=== PATIENT | female | born 1955 ===

== ENCOUNTER 2017-03-19 17:14 | Emergency (ER) | payer BC ==
[2017-03-19 17:26] VITALS: BMI 24.1
[2017-03-19 17:29] VITALS: RESP 16; TEMP 98.8; O2SAT 99
--- NOTE | 2017-03-19 18:24 | ED PDOC ---
Arrival/HPI - General Chief Complaint: Trauma Time Seen by Provider: 03/19/17 18:10 Historian: Patient - History of Present Illness Narrative History of Present Illness (Text): 03/19/17 18:00 This 61 yo female presents to this ED c/o left foot and left lower leg pain x [employer]. Patient stated she step on uneven surface , which caused her to fall. Denies head injury, LOC, dizziness, sob, cp, abdominal pain, back pain, /GI incontinence, saddle anesthesia, neck pain, or syncope. Time/Duration: Prior to Arrival Quality: Aching Context: Home Past Medical History - Provider Review Nursing Documentation Reviewed: Yes - Cardiac Hx Cardiac Disorders: No - Pulmonary Hx Respiratory Disorders: No - Neurological Hx Neurological Disorder: No - HEENT Hx HEENT Disorder: No - Renal Hx Renal Disorder: No - Endocrine/Metabolic Hx Endocrine Disorders: No - Hematological/Oncological Hx Blood Disorders: No - Integumentary Hx Dermatological Disorder: No - Musculoskeletal/Rheumatological Hx Musculoskeletal Disorders: No - Gastrointestinal Hx Gastrointestinal Disorders: No - Genitourinary/Gynecological Hx Genitourinary Disorders: No - Psychiatric Hx Psychophysiologic Disorder: Yes Hx Anxiety: Yes Hx Substance Use: No Family/Social History - Physician Review Nursing Documentation Reviewed: Yes Family/Social History: No Known Family HX Smoking Status: Never Smoked Hx Alcohol Use: No Hx Substance Use: No Allergies/Home Meds Allergies/Adverse Reactions: Allergies No Known Allergies Allergy (Verified 03/19/17 17:25) Home Medications: Home Meds Medication Instructions Recorded Confirmed Alprazolam [Xanax] 1 tab PO PRN PRN 03/19/17 03/19/17 Ergocalciferol (Vitamin D2) 0 units PO DAILY 03/19/17 03/19/17 [Vitamin D] Vitamin B Complex [Balance B-100] 1 tab PO DAILY 03/19/17 03/19/17 Review of Systems - Review of Systems Constitutional: Normal. absent: Fatigue, Weight Change, Fevers Eyes: Normal. absent: Vision Changes ENT: Normal Respiratory: Normal. absent: SOB, Cough Cardiovascular: Normal. absent: Chest Pain, Palpitations Gastrointestinal: Normal. absent: Abdominal Pain, Nausea, Vomiting Genitourinary Female: Normal. absent: Hematuria Musculoskeletal: Other (See HPI) Skin: Normal. absent: Rash, Laceration Neurological: Normal. absent: Headache, Dizziness, Focal Weakness, Gait Changes , Speech Changes, Facial Droop, Disequilibrium, Seizure Endocrine: Normal Hemo/Lymphatic: Normal Psychiatric: Normal Physical Exam Vital Signs Temp Pulse Resp BP Pulse Ox 03/19/17 19:36 98.8 F 85 16 130/75 99 03/19/17 17:25 98.8 F 86 16 139/80 99 Temperature: Afebrile Blood Pressure: Normal Pulse: Regular Respiratory Rate: Normal Appearance: Positive for: Well-Appearing, Non-Toxic, Comfortable Pain Distress: None Mental Status: Positive for: Alert and Oriented X 3 - Systems Exam Head: Present: Atraumatic, Normocephalic, Other (no raccoon sign. No covington sign) Pupils: Present: PERRL, Other (no hyphema) Extroacular Muscles: Present: EOMI Conjunctiva: Present: Normal Mouth: Present: Moist Mucous Membranes Neck: Present: Normal Range of Motion Upper Extremity: Present: Normal ROM, NORMAL PULSES, Tenderness (Mild tenderness right 4th finger), Neurovascularly Intact, Capillary Refill < 2s. No : Cyanosis, Edema, Deformity Lower Extremity: Present: NORMAL PULSES, Normal ROM, Tenderness (Mild swellinf left dorsal foot. ), Swelling, Neurovascularly Intact, Capillary Refill < 2 s. No: Edema, CALF TENDERNESS, Annel's Sign Neurological: Present: GCS=15, CN II-XII Intact, Motor Func Grossly Intact, Normal Sensory Function, Normal Cerebellar Funct, Gait Normal, Memory Normal Skin: Present: Warm, Dry, Normal Color. No: Rashes Psychiatric: Present: Alert, Oriented x 3 Medical Decision Making ED Course and Treatment: Re-evaluation. Patient feels better. Discussed results and plan with patient who expresses understanding. All questions answered and there is agreement with the plan to discharge home with instructions. Patient stable for discharge. Return if symptoms persist or worsen. Re-evaluation Time: 19:00 Reassessment Condition: Re-examined, Improved - RAD Interpretation Narrative RAD Interpretations (Text): Hand x-rays: No fx Foot x-rays: N Fx Tib/Fib x-rays: No Fx Radiology Orders: 03/19/17 18:19 FOOT LEFT 3 VIEWS ROUTINE [RAD] Stat TIBIA FIBULA LEFT [RAD] Stat 03/19/17 18:24 HAND RIGHT 3 VIEWS [RAD] Stat - Medication Orders Current Medication Orders: Discontinued Medications Acetaminophen (Tylenol 325mg Tab) 650 mg PO STAT STA Stop: 03/19/17 18:21 Last Admin: 03/19/17 18:33 Dose: 650 mg Disposition/Present on Arrival - Present on Arrival Any Indicators Present on Arrival: No History of DVT/PE: No History of Uncontrolled Diabetes: No Urinary Catheter: No History of Decub. Ulcer: No History Surgical Site Infection Following: None - Disposition Have Diagnosis and Disposition been Completed?: Yes Diagnosis: Hand contusion, Foot sprain Disposition: HOME/ ROUTINE Disposition Time: 19:00 Patient Plan: Discharge Condition: GOOD Discharge Instructions (ExitCare): How to Use an Elastic Bandage (ED), Contusion in Adults (ED), Foot Sprain (ED) Additional Instructions: Call private doctor for follow up visit in 1-2 days. Take medication as instructed. Remove amna bandage at bedtime. Return to emergency if symptoms worsen. Prescriptions: Acetaminophen [Tylenol 325mg tab] 650 mg PO Q4H PRN #30 tab PRN Reason: Pain, Severe (8-10) Referrals: [facility], [Non-Staff] - Follow up with primary Rito Weston DPM [Staff Provider] - Follow up with primary Forms: WORK NOTE
[2017-03-19 19:37] VITALS: BP 130/75; PULSE 85
--- NOTE | 2017-03-20 07:39 | RAD ---
PROCEDURE: Right Hand Radiographs. HISTORY: pain. Att. 4th finger COMPARISON: None. FINDINGS: BONES: Normal. No fracture. JOINTS: Normal. No osteoarthritic changes. SOFT TISSUES: Normal. OTHER FINDINGS: None. IMPRESSION: Normal right hand radiographs.
--- NOTE | 2017-03-20 07:41 | RAD ---
PROCEDURE: Radiographs of the left tibia and fibula. HISTORY: pain s/p fall COMPARISON: None available. TECHNIQUE: Frontal and lateral views obtained. FINDINGS: BONES: No fracture or destructive lesion. JOINT SPACES: Unremarkable. OTHER FINDINGS: None. IMPRESSION: Unremarkable radiographs of the left tibia and fibula.
--- NOTE | 2017-03-20 07:43 | RAD ---
PROCEDURE: Left Foot Radiographs. HISTORY: pain s/p fall COMPARISON: None. FINDINGS: BONES: Normal. No fracture. JOINTS: Normal. SOFT TISSUES: Normal. OTHER FINDINGS: None. IMPRESSION: No acute findings
== END 2017-03-19 19:37 | disposition home or self-care (01) ==
LOC: ED 17:14
DX: S60.221A Contusion of right hand, initial encounter (principal); S93.602A Unspecified sprain of left foot, initial encounter; W19.XXXA Unspecified fall, initial encounter; Y92.009 Unspecified place in unspecified non-institutional (private) residence as the place of occurrence of the external cause